=== PATIENT | female | born 1945 | race Caucasian/White ===

== ENCOUNTER → 2017-09-13 | Outpatient (CLI) | payer MEDICARE ==
--- NOTE | 2017-09-14 15:14 | Diagnostic Imaging Report ---
#[id number] - [id number] #BILATERAL DIGITAL SCREENING MAMMOGRAM WITH CAD: 09/13/2017 CLINICAL: Routine screening. Comparison is made to exam dated: 03/09/2013 mammogram - [facility]. Current study contains 4 films. There are scattered fibroglandular elements in both breasts. Current study was also evaluated with a Computer Aided Detection (CAD) system. There are benign calcifications in both breasts. There also are benign densities in both breasts. Additionally there is a benign lymph node in the left breast. No significant masses, calcifications, or other findings are seen in either breast. There has been no significant interval change. IMPRESSION: BENIGN There is no mammographic evidence of malignancy. A 1 year screening mammogram is recommended. The patient will be notified by letter of the results. Long larose/jacek:09/14/2017 14:41:21 Buckle Inspector: Shweta SALINAS(Araceli)(M), [facility] letter sent: Compared to Prior B9 Mammogram BI-RADS: 2 Benign
== END ==
LOC: MAMMO 12:06
PROVIDERS: ATTEND Internal Medicine
DX: Z12.31 Encounter for screening mammogram for malignant neoplasm of breast (principal)
CPT/HCPCS: 77067

== ENCOUNTER → 2018-06-19 | Outpatient (CLI) | payer MEDICARE | LOC: MAMMO 09:32 | PROVIDERS: ATTEND Internal Medicine | DX: Z12.31 Encounter for screening mammogram for malignant neoplasm of breast (principal) | CPT/HCPCS: 77067 ==

== ENCOUNTER → 2019-08-08 | Outpatient (CLI) | payer MEDICARE | LOC: MAMMO 13:47 | PROVIDERS: ATTEND Internal Medicine | DX: Z12.31 Encounter for screening mammogram for malignant neoplasm of breast (principal) | CPT/HCPCS: 77067 ==

== ENCOUNTER → 2020-08-15 | Outpatient (CLI) | payer MEDICARE | LOC: MAMMO 11:08 | PROVIDERS: ATTEND Internal Medicine | DX: Z12.31 Encounter for screening mammogram for malignant neoplasm of breast (principal); M81.8 Other osteoporosis without current pathological fracture; M94.9 Disorder of cartilage, unspecified | CPT/HCPCS: 77067; 77080 ==

== ENCOUNTER → 2021-11-05 | Outpatient (CLI) | payer MEDICARE | LOC: MAMMO 12:34 | PROVIDERS: ATTEND Internal Medicine | DX: Z12.31 Encounter for screening mammogram for malignant neoplasm of breast (principal) | CPT/HCPCS: 77067 ==

== ENCOUNTER → 2024-09-10 | Outpatient (REF) | payer MEDICARE | LOC: DX 11:46 | PROVIDERS: ATTEND Internal Medicine | DX: M85.88 Other specified disorders of bone density and structure, other site (principal) | CPT/HCPCS: 77080 ==

== ENCOUNTER → 2024-12-06 | Outpatient (REF) | payer MEDICARE | LOC: MAMMO 12:48 | PROVIDERS: ATTEND Internal Medicine | DX: Z12.31 Encounter for screening mammogram for malignant neoplasm of breast (principal) | CPT/HCPCS: 77067 ==

== ENCOUNTER 2025-01-09 21:58 | Emergency (ER) | payer MEDICARE ==
[~2025-01-09] VITALS: Ht 152.4 cm; Wt 65.8 kg
[2025-01-09 22:34] VITALS: TEMP 98.1
[2025-01-09] MEDS: HYDROCODONE/APAP 5MG-325MG TAB PO ONE (22:53)
[2025-01-09 23:45] VITALS: PULSE 88; RESP 18; O2SAT 99
[2025-01-10 00:15] VITALS: PULSE 88; RESP 20; O2SAT 99
[2025-01-10] MEDS ORDERED: HYDROCODON-ACE1 EA11 PO (00:19)
== END 2025-01-10 00:34 | disposition home or self-care (01) ==
LOC: ER 22:36
DX: S20.212A Contusion of left front wall of thorax, initial encounter (principal); W01.198A Fall on same level from slipping, tripping and stumbling with subsequent striking against other object, initial encounter; Y93.01 Activity, walking, marching and hiking; Y92.89 Other specified places as the place of occurrence of the external cause; Z85.820 Personal history of malignant melanoma of skin; F17.210 Nicotine dependence, cigarettes, uncomplicated
CPT/HCPCS: 71101; 94799; 99283